=== PATIENT | male | born 1935 | race Caucasian/White ===

== ENCOUNTER 2016-10-25 16:51 | Inpatient (IN) | payer MEDICARE, MEDICAID ==
[~2016-10-25] VITALS: Ht 172.7 cm; Wt 87.0 kg
[2016-10-25] MEDS ORDERED: SODIUM CHLORIDE 0.9% 1,000 ML IV ONE (16:54)
[2016-10-25] MEDS ORDERED: ALBUTEROL/IPRATROPIUM 2.5MG/0.5MG, 3 ML ONE (17:00)
[2016-10-25] MEDS ORDERED: ALBUTEROL/IPRATROPIUM 2.5MG/0.5MG, 3 ML NPPB ONE (17:00)
[2016-10-25] MEDS ORDERED: methylPREDNISolone SOD SUCC 125 MG/2 ML IVP ONE (17:00)
[2016-10-25] MEDS ORDERED: SODIUM CHLORIDE FLUSH 10ML SYR IVF ONE (17:00)
[2016-10-25] MEDS ORDERED: CEFTRIAXONE PMX 1GM/50ML 50 ML IV ONE (17:30)
[2016-10-25] MEDS ORDERED: AZITHROMYCIN 500 MG in SODIUM CHLORIDE 0.9% 250 ML IV ONE (17:30)
[2016-10-25] MEDS ORDERED: AMPICILLIN/SULBACTAM 1,500 MG in SODIUM CHLORIDE 0.9% 50 ML IV ONE (17:30)
[2016-10-25] MEDS ORDERED: PLEASE ENTER ALLERGIES MC SCH ×2 (17:30)
[2016-10-25] MEDS ORDERED: CEFTRIAXONE PMX 1GM/50ML 50 ML ONE (17:31)
[2016-10-25] MEDS ORDERED: methylPREDNISolone SOD SUCC 125 MG/2 ML ONE (17:31)
[2016-10-25 17:41] LABS: HEMATOCRIT 39.2 % (39.2-51.8); HEMOGLOBIN 12.8 g/dL (13.7-18.0); WHITE BLOOD COUNT 12.9 x10^3/uL (3.4-10)
[2016-10-25 17:50] LABS: BLOOD UREA NITROGEN 17 mg/dL (7-18)
[2016-10-25] MEDS ORDERED: IPRA4AER INH (17:53)
[2016-10-25 17:56] LABS: ASPARTATE AMINO TRANSFERASE 55 U/L (15-37)
[2016-10-25] MEDS ORDERED: SENN1TAB35 PO (17:56)
[2016-10-25] MEDS ORDERED: LACT1CAP24 PO (17:56)
[2016-10-25] MEDS ORDERED: PANT40TA5 PO (17:56)
[2016-10-25] MEDS ORDERED: POLY17PO3 PO (17:56)
[2016-10-25] MEDS ORDERED: CYAN100028 PO (17:56)
[2016-10-25] MEDS ORDERED: CHOL100012 PO (17:56)
[2016-10-25] MEDS ORDERED: FUROSEMIDE 40 MG/4 ML IV ONE (18:30)
[2016-10-25 18:31] LABS: IS PT STATUS REG ER OR PRE ER? YES
[2016-10-25] MEDS ORDERED: FUROSEMIDE 40 MG/4 ML ONE (18:35)
[2016-10-25 18:52] LABS: ABG COLLECTION SITE LEFT RADIAL
[2016-10-25 18:53] LABS: COLLATERAL CIRCULATION TESTING NORMAL
[2016-10-25] MEDS ORDERED: ONDANSETRON 2MG/ML, 2ML IVPush PRN (19:30)
[2016-10-25] MEDS ORDERED: morphine SULFATE 10 MG/ML, 1ML IVPush PRN (19:30)
[2016-10-25] MEDS ORDERED: BISACODYL 10 MG SUPP PR PRN (19:30)
[2016-10-25] MEDS ORDERED: VANCOMYCIN PER PHARMACY MC PRN (19:30)
[2016-10-25] MEDS ORDERED: PHARMACOKINETIC MONITORING MC PRN (20:30)
[2016-10-25] MEDS ORDERED: PHARMACOKINETIC CONSULTATION MC ONE (20:30)
[2016-10-25] MEDS: VANCOMYCIN 1,400 MG in SODIUM CHLORIDE 0.9% 250 ML IV SCH (20:46)
[2016-10-25] MEDS: AMPICILLIN/SULBACTAM 3 GM in SODIUM CHLORIDE 0.9% 100 ML IV SCH (20:51)
[2016-10-25 23:00] VITALS: BP 134/92
[2016-10-25] MEDS: ALBUTEROL/IPRATROPIUM 2.5MG/0.5MG, 3 ML NPPB SCH (23:00)
[2016-10-25] MEDS: D5%-0.45NACL+KCL 20MEQ 1,000 ML IV SCH (23:34)
[2016-10-25] MEDS: ENOXAPARIN 80 MG/0.8 ML SQ SCH (23:34)
[2016-10-25] MEDS: FAMOTIDINE 20 MG/2 ML IVPush SCH (23:34)
[2016-10-26] MEDS: AMPICILLIN/SULBACTAM 3 GM in SODIUM CHLORIDE 0.9% 100 ML IV SCH ×4 (01:08→19:53)
[2016-10-26 01:29] VITALS: BP 110/72
[2016-10-26] MEDS: ALBUTEROL/IPRATROPIUM 2.5MG/0.5MG, 3 ML NPPB SCH ×5 (06:00→22:20)
[2016-10-26 06:09] LABS: HEMATOCRIT 39.4 % (39.2-51.8); HEMOGLOBIN 12.8 g/dL (13.7-18.0); WHITE BLOOD COUNT 6.7 x10^3/uL (3.4-10)
[2016-10-26 06:25] LABS: BLOOD UREA NITROGEN 19 mg/dL (7-18)
[2016-10-26] MEDS: FAMOTIDINE 20 MG/2 ML IVPush SCH ×2 (08:29→22:03)
[2016-10-26 08:37] VITALS: BP 126/83
[2016-10-26] MEDS: ENOXAPARIN 80 MG/0.8 ML SQ SCH ×2 (10:18→22:03)
[2016-10-26] MEDS: D5%-0.45NACL+KCL 20MEQ 1,000 ML IV SCH (13:21)
[2016-10-26 20:50] VITALS: BP 118/70
[2016-10-26] MEDS: VANCOMYCIN 1,400 MG in SODIUM CHLORIDE 0.9% 250 ML IV SCH (22:04)
[2016-10-26] MEDS: LORazepam 2 MG/ML, 1ML IVPush PRN (22:12)
[2016-10-27] MEDS: AMPICILLIN/SULBACTAM 3 GM in SODIUM CHLORIDE 0.9% 100 ML IV SCH ×4 (02:17→20:53)
[2016-10-27 02:23] VITALS: BP 109/65
[2016-10-27] MEDS: ALBUTEROL/IPRATROPIUM 2.5MG/0.5MG, 3 ML NPPB SCH ×5 (07:30→22:30)
[2016-10-27 09:04] VITALS: BP 121/76
[2016-10-27] MEDS: FAMOTIDINE 20 MG/2 ML IVPush SCH ×2 (09:14→22:07)
[2016-10-27] MEDS: ENOXAPARIN 80 MG/0.8 ML SQ SCH ×2 (09:26→22:13)
[2016-10-27 15:02] VITALS: BP 121/76
[2016-10-27 20:18] VITALS: BP 149/78
[2016-10-27] MEDS: SODIUM CHLORIDE 0.9% 1,000 ML IV SCH (20:52)
[2016-10-27] MEDS: LORazepam 2 MG/ML, 1ML IVPush PRN (20:53)
[2016-10-27] MEDS: VANCOMYCIN 1,400 MG in SODIUM CHLORIDE 0.9% 250 ML IV SCH (22:07)
[2016-10-28 01:28] VITALS: BP 114/73
[2016-10-28] MEDS: AMPICILLIN/SULBACTAM 3 GM in SODIUM CHLORIDE 0.9% 100 ML IV SCH ×4 (04:37→23:47)
[2016-10-28 06:24] LABS: HEMATOCRIT 37.5 % (39.2-51.8); HEMOGLOBIN 12.2 g/dL (13.7-18.0); WHITE BLOOD COUNT 10.4 x10^3/uL (3.4-10)
[2016-10-28 06:53] LABS: BLOOD UREA NITROGEN 20 mg/dL (7-18)
[2016-10-28 07:37] VITALS: BP 109/78
[2016-10-28] MEDS: ALBUTEROL/IPRATROPIUM 2.5MG/0.5MG, 3 ML NPPB SCH ×5 (08:02→22:00)
[2016-10-28] MEDS: ENOXAPARIN 80 MG/0.8 ML SQ SCH ×2 (09:25→21:25)
[2016-10-28] MEDS: FAMOTIDINE 20 MG/2 ML IVPush SCH ×2 (09:25→21:25)
[2016-10-28] MEDS: SODIUM CHLORIDE 0.9% 1,000 ML IV SCH (09:25)
[2016-10-28 14:30] VITALS: BP 127/69
[2016-10-28] MEDS: LORazepam 2 MG/ML, 1ML IVPush PRN (18:00)
[2016-10-28 20:00] VITALS: BP 122/77
[2016-10-28] MEDS: VANCOMYCIN 1,400 MG in SODIUM CHLORIDE 0.9% 250 ML IV SCH (21:25)
[2016-10-29 02:20] VITALS: BP 121/78
[2016-10-29] MEDS: AMPICILLIN/SULBACTAM 3 GM in SODIUM CHLORIDE 0.9% 100 ML IV SCH ×3 (05:53→18:15)
[2016-10-29] MEDS: SODIUM CHLORIDE 0.9% 1,000 ML IV SCH ×2 (05:53→22:42)
[2016-10-29] MEDS: ALBUTEROL/IPRATROPIUM 2.5MG/0.5MG, 3 ML NPPB SCH ×5 (07:48→21:42)
[2016-10-29 07:58] VITALS: BP 150/88
[2016-10-29] MEDS: FAMOTIDINE 20 MG/2 ML IVPush SCH ×2 (09:33→22:42)
[2016-10-29] MEDS: ENOXAPARIN 80 MG/0.8 ML SQ SCH ×2 (09:38→22:59)
[2016-10-29 14:00] VITALS: BP 148/74
[2016-10-29 20:26] VITALS: BP 133/70
[2016-10-29] MEDS: VANCOMYCIN 1,400 MG in SODIUM CHLORIDE 0.9% 250 ML IV SCH (22:42)
[2016-10-30] MEDS: AMPICILLIN/SULBACTAM 3 GM in SODIUM CHLORIDE 0.9% 100 ML IV SCH ×4 (00:44→17:14)
[2016-10-30 01:24] VITALS: BP 122/70
[2016-10-30 05:55] LABS: HEMATOCRIT 39.7 % (39.2-51.8); HEMOGLOBIN 12.7 g/dL (13.7-18.0); WHITE BLOOD COUNT 7.6 x10^3/uL (3.4-10)
[2016-10-30 05:59] LABS: BLOOD UREA NITROGEN 21 mg/dL (7-18)
[2016-10-30] MEDS: ALBUTEROL/IPRATROPIUM 2.5MG/0.5MG, 3 ML NPPB SCH ×5 (06:50→22:00)
[2016-10-30 06:58] VITALS: BP 131/70
[2016-10-30] MEDS: FAMOTIDINE 20 MG/2 ML IVPush SCH ×2 (08:55→21:00)
[2016-10-30] MEDS: ENOXAPARIN 80 MG/0.8 ML SQ SCH ×2 (09:43→22:00)
[2016-10-30] MEDS: SODIUM CHLORIDE 0.9% 1,000 ML IV SCH (11:20)
[2016-10-30 14:02] VITALS: BP 140/97
[2016-10-30 21:02] VITALS: BP 133/87
[2016-10-30] MEDS: VANCOMYCIN 1,400 MG in SODIUM CHLORIDE 0.9% 250 ML IV SCH (22:58)
[2016-10-31 00:47] VITALS: BP 131/82
[2016-10-31] MEDS: AMPICILLIN/SULBACTAM 3 GM in SODIUM CHLORIDE 0.9% 100 ML IV SCH ×4 (01:09→18:43)
[2016-10-31] MEDS: ALBUTEROL/IPRATROPIUM 2.5MG/0.5MG, 3 ML NPPB SCH ×5 (06:40→22:00)
[2016-10-31 07:11] VITALS: BP 138/92
[2016-10-31] MEDS: SODIUM CHLORIDE 0.9% 1,000 ML IV SCH ×2 (09:35→23:19)
[2016-10-31] MEDS: ENOXAPARIN 80 MG/0.8 ML SQ SCH ×2 (09:35→21:34)
[2016-10-31] MEDS: FAMOTIDINE 20 MG/2 ML IVPush SCH ×2 (09:35→21:34)
[2016-10-31 12:40] VITALS: BP 153/88
[2016-10-31] MEDS ORDERED: SCOPOLAMINE PATCH, 1.5MG PATCH.TD72 TD ONE (17:00)
[2016-10-31 20:00] VITALS: BP 124/62
[2016-10-31] MEDS: VANCOMYCIN 1,400 MG in SODIUM CHLORIDE 0.9% 250 ML IV SCH (23:19)
[2016-11-01] MEDS: AMPICILLIN/SULBACTAM 3 GM in SODIUM CHLORIDE 0.9% 100 ML IV SCH ×3 (01:05→12:08)
[2016-11-01 02:00] VITALS: BP 142/90
[2016-11-01 06:25] VITALS: BP 143/84
[2016-11-01] MEDS: ALBUTEROL/IPRATROPIUM 2.5MG/0.5MG, 3 ML NPPB SCH ×3 (06:40→13:50)
[2016-11-01] MEDS: FAMOTIDINE 20 MG/2 ML IVPush SCH (09:42)
[2016-11-01] MEDS: ENOXAPARIN 80 MG/0.8 ML SQ SCH (09:42)
[2016-11-01 12:13] VITALS: BP 116/69
[2016-11-01] MEDS: SODIUM CHLORIDE 0.9% 1,000 ML IV SCH (14:26)
[2016-11-01] MEDS ORDERED: LORazepam 2 MG/ML, 1ML IVPush PRN (16:00)
[2016-11-01] MEDS ORDERED: SCOPOLAMINE PATCH, 1.5MG PATCH.TD72 TD PRN (16:00)
[2016-11-01] MEDS: ATROPINE OPHTH SOLN 1%, 5ML BC PRN ×2 (18:48→23:16)
[2016-11-01] MEDS ORDERED: ALBUTEROL/IPRATROPIUM 2.5MG/0.5MG, 3 ML ONE (18:51)
[2016-11-01] MEDS: MORPHINE SULFATE 4 MG/ML, 1ML IVPush PRN (22:58)
[2016-11-02] MEDS: MORPHINE SULFATE 4 MG/ML, 1ML IVPush PRN ×8 (01:58→16:50)
[2016-11-02] MEDS: ATROPINE OPHTH SOLN 1%, 5ML BC PRN ×9 (01:59→19:17)
[2016-11-02] MEDS ORDERED: morphine SULFATE 125 MG in SODIUM CHLORIDE 0.9% 237.5 ML IV PRN ×2 (18:00)
== END 2016-11-02 21:15 | disposition expired | DRG 871 ==
LOC: ED 18:30 → SUATTDRO 18:54 → EDIP 19:38 → 5SO 22:39 → 4EST 10-29 18:44 → 4WST 11-01 18:13 → 3NW 11-01 22:15
PROVIDERS: ADMIT Family Medicine; ATTEND Family Medicine
DX: A41.9 Sepsis, unspecified organism (principal); E43 Unspecified severe protein-calorie malnutrition; J69.0 Pneumonitis due to inhalation of food and vomit; J96.01 Acute respiratory failure with hypoxia; I63.40 Cerebral infarction due to embolism of unspecified cerebral artery; G93.41 Metabolic encephalopathy; R13.12 Dysphagia, oropharyngeal phase; I10 Essential (primary) hypertension; I27.2 Other secondary pulmonary hypertension; I48.91 Unspecified atrial fibrillation; Z66 Do not resuscitate; J44.9 Chronic obstructive pulmonary disease, unspecified; Z51.5 Encounter for palliative care; Z63.8 Other specified problems related to primary support group; Z91.19 Patient's noncompliance with other medical treatment and regimen; Z68.29 Body mass index [BMI] 29.0-29.9, adult; I69.391 Dysphagia following cerebral infarction
CPT/HCPCS: 36415; 36600; 70450; 71010; 74230; 80048; 80053; 80061; 80202; 82803; 83605; 83735; 83880; 84484; 85025; 85610; 85730; 87040; 93005; 93306; 94640; 96365; 96366; 96367; 96368; 96375; J0295; J0456; J0696; J1650; J1940; J3370; J7620; 92523-GN; J2060; J2270; J2930; J3480; J7030; J7050; S0028